=== PATIENT | female | born 1950 | race Caucasian/White ===

== ENCOUNTER 2024-06-01 09:07 | Outpatient (AMB) | payer MEDICARE, OTHER, SELFPAY ==
--- NOTE | 2024-06-01 09:10 | HO.NEPHOV ---
Vital Signs 06/01/24 09:11 Height 5 ft Weight 169 lb BMI 33.0 BP 138/78 Blood Pressure Location Lt brachial Position Sitting Pulse 72 Pulse Source Pulse Oximeter Pulse Oximetry (%) 96 Oxygen Delivery Method Room Air Intake Visit Reasons: Previous patient/ Conf Debt Management Counselor Required: No Accompanied by: Son Allergies fluticasone [From Advair Diskus] Allergy (Unknown, Verified 06/01/24 09:13) Unknown oxycodone Allergy (Unknown, Verified 06/01/24 09:13) Unknown salmeterol [From Advair Diskus] Allergy (Unknown, Verified 06/01/24 09:13) Unknown Medication List - Last Reconciled 06/01/24 by Rambo Liz MD albuterol sulfate 90 mcg/actuation inhalation PRN amlodipine 5 mg PO DAILY pwranhjrslx-ivzidvvht-aahtifzv 200-62.5-25 mcg (Trelegy Ellipta) 1 ea inhalation DAILY hydrochlorothiazide 25 mg PO DAILY lisinopril 10 mg PO BID lorazepam 0.5 mg PO DAILY PRN montelukast 10 mg PO DAILY omeprazole 20 mg PO BID potassium citrate ER 10 mEq PO DAILY HPI Comments Details: Laure is a pleasant 72-year-old man with a history of nephrolithiasis and hypertension. She is here for follow-up regarding the same. She was previously seen more than a year ago. [facility] Medical History (Updated 06/01/24 @ 09:20 by Rambo Liz MD) Hypertension Hyperparathyroidism Asthma Anxiety disorder Review of Systems Const Denies fever(s) and Denies weight loss Card Denies chest pain Resp Denies cough and Denies hemoptysis GI Denies abdominal pain, Denies diarrhea and Denies nausea Musc Denies back pain Neuro Denies focal weakness Physical Exam Vital Signs: Last Vital Signs Pulse 72 06/01/24 09:11 BP 138/78 06/01/24 09:11 Pulse Ox 96 06/01/24 09:11 Oxygen Delivery Method Room Air 06/01/24 09:11 BMI result Body Mass Index 33.0 Awake. Comfortable. Neck is supple. Mucosa moist. Lungs AE equal Heart S1-S2 heard no gallop. Abdomen soft. Extremities no edema. No involuntary movements. No myoclonus. Const General: comfortable; No acute distress Orientation/consciousness: patient oriented x3 Eyes General: appearance normal, both eyes and all related structures Visual Taylor: normal visual taylor by confrontation Neck Neck: Yes supple and Yes no JVD Resp Effort & Inspection: normal respiratory effort and respiratory effort not decreased Auscultation: rhonchi Cardio Palpation: no palpable S3 and no palpable S4 Heart sounds: no rubs GI Inspection: Yes normal to inspection Palpation (GI): Soft to palpation Percussion: Yes normal to percussion Auscultation: normal bowel sounds General: Yes no CVA tenderness Back/Spine/Pelvis Back: no CVA tenderness Skin General skin exam: no petechiae and no purpura Neuro General: patient oriented x3 and no focal motor deficits Extrem General: No clubbing and No edema Results Reviewed Nephrology Results: No Data to Display Assessment & Plan Assessment & Plan (1) Nephrolithiasis: Code(s): N20.0 - Calculus of kidney Category: Medical Plan: Discussed low-salt diet Increase p.o. fluid intake Maintain urine output of 2 L. Continue potassium citrate to increase urinary citrate excretion Plan Hypertension Blood pressure is acceptable. Keep on current medications. Orders: Orders Basic Metabolic Panel 1 Year N20.0 - Calculus of kidney Parathyroid Hormone Intact 1 Year N20.0 - Calculus of kidney UA and rflx microscopic 1 Year N20.0 - Calculus of kidney Coding Level of Care Code Est Pt Level 4 (91221) Diagnoses Nephrolithiasis N20.0
[2024-06-01 09:11] VITALS: BP 138/78; PULSE 72; O2SAT 96; BMI 33.0
== END 2024-06-01 09:27 | disposition home or self-care (01) ==
PROVIDERS: PCP Internal Medicine; Visit Provider Internal Medicine Hypertension Specialist
DX: N20.0 Calculus of kidney (principal)
CPT/HCPCS: 99214

== ENCOUNTER → 2024-06-01 09:07 | Outpatient (BNVA) | payer MEDICARE, OTHER, SELFPAY | PROVIDERS: PCP Internal Medicine; Visit Provider Internal Medicine Hypertension Specialist | DX: N20.0 Calculus of kidney (principal); I10 Essential (primary) hypertension | CPT/HCPCS: 99212 ==

== ENCOUNTER 2025-05-31 09:59 | Outpatient (AMB) | payer MEDICARE, OTHER, SELFPAY ==
[2025-05-31 10:04] VITALS: BP 172/84; PULSE 78; O2SAT 95; BMI 32.2
--- NOTE | 2025-05-31 10:04 | HO.NEPHOV ---
Vital Signs 05/31/25 10:04 Height 5 ft Weight 165 lb BMI 32.2 BP 172/84 H Blood Pressure Location Lt brachial Position Sitting Pulse 78 Pulse Source Pulse Oximeter Pulse Oximetry (%) 95 Oxygen Delivery Method Room Air Intake Visit Reasons: 1yr follow up Spine Surgeon Required: No Accompanied by: Self / Same As Patient Allergies fluticasone (From Advair Diskus) Allergy (Unknown, Verified 05/31/25 10:05) Unknown oxycodone Allergy (Unknown, Verified 05/31/25 10:05) Unknown salmeterol (From Advair Diskus) Allergy (Unknown, Verified 05/31/25 10:05) Unknown Medication List - Last Reconciled 05/31/25 by Rambo Liz MD albuterol sulfate 90 mcg/actuation inhalation PRN amlodipine 5 mg PO DAILY ixbaauglgfa-dxbmqkbhi-yppdfpfx 200-62.5-25 mcg (Trelegy Ellipta) 1 ea inhalation DAILY lisinopril 10 mg PO BID lorazepam 0.5 mg PO DAILY PRN montelukast 10 mg PO DAILY omeprazole 20 mg PO BID potassium citrate ER 10 mEq PO DAILY HPI Comments Details: Laure is a pleasant 72-year-old man with a history of nephrolithiasis and hypertension. She is here for follow-up regarding the same. She was previously seen more than a year ago. 05/31/25 - The patient is a 74-year-old female presenting with hypertension management and review of recent hospitalization for respiratory distress. - Hypertension: Blood pressure fluctuates; hydrochlorothiazide stopped due to hypokalemia. Still on KCL - Kidney Function: Normal kidney function, no current stones. Home BP readings have been acceptable. [facility] Medical History (Updated 05/31/25 @ 10:25 by Rambo Liz MD) Hypertension Hyperparathyroidism Asthma Anxiety disorder Physical Exam Vital Signs: Last Vital Signs Pulse 78 05/31/25 10:04 BP 172/84 H 05/31/25 10:04 Pulse Ox 95 05/31/25 10:04 Oxygen Delivery Method Room Air 05/31/25 10:04 BMI result Body Mass Index 32.2 Comfortable Neck supple no JVD. Lungs entry equal no rales. Heart S1-S2 heard no gallop or rub. Abdomen soft nontender. Neuro alert awake oriented. No asterixis. Extremities no edema. Results Reviewed Results Reviewed: May 2025 Cr 0.84 Assessment & Plan Assessment & Plan (1) Nephrolithiasis: Code(s): N20.0 - Calculus of kidney Category: Medical Plan: Discussed low-salt diet Increase p.o. fluid intake Maintain urine output of 2 L. Continue potassium citrate to increase urinary citrate excretion (2) Hypertension: Code(s): I10 - Essential (primary) hypertension Category: Medical Plan Hypertension Blood pressure is sub optimal Increase Amlodipine to 10 mg QD Monitor BP at home Recheck K in 4 weeks since she is on Potassium citrate And off HCTZ Orders: Orders Basic Metabolic Panel 4 Weeks I10 - Essential (primary) hypertension, N20.0 - Calculus of kidney Medications: Changed From amlodipine 10 mg PO DAILY To amlodipine 10 mg PO DAILY 90 tabs 1RF Coding Level of Care Code Est Pt Level 4 (33194) Diagnoses Nephrolithiasis N20.0 Hypertension I10
--- OUTSIDE RECORDS SUMMARY | 2025-05-31 11:11 | XMS_ITS | Clinical Summary ---
Author Organization [facility] Address [address] [facility] [address] [place] [address] Phone Care Team Providers Care Procurement Clerk Name Role Phone Rocío Bryant MD Primary Care Provider [phone] Allergies Active Allergy Reactions Criticality Noted Date Comments Fluticasone-Salmeterol Other (see comments) Oxycodone 06/19/2021 Medications B Complex Vitamins (B COMPLEX 1 PO) Take 1 tablet by mouth 1 (one) time each day Active albuterol HFA (PROVENTIL HFA;VENTOLIN HFA) 108 (90 Base) MCG/ACT inhaler 06/01/2021 Active Multiple Vitamin (MULTIVITAMIN ADULT PO) Take 1 capsule by mouth 1 (one) time each day Active amLODIPine (NORVASC) 5 MG tablet Take 5 mg by mouth 1 (one) time each day Active lisinopril 10 MG tablet Take 10 mg by mouth 1 (one) time each day Active LORazepam (ATIVAN) 0.5 MG tablet Take 0.5 mg by mouth every 6 (six) hours if needed for anxiety Active montelukast (SINGULAIR) 10 MG tablet Take 10 mg by mouth every night Active sucralfate (CARAFATE) 1 g tablet Take 1 g by mouth 4 (four) times a day Active Cholecalciferol (VITAMIN D-3 PO) Take by mouth Take 50mcg per day PO Active potassium chloride 10 MEQ CR tablet Take 10 mEq by mouth 2 (two) times a day Do not crush, chew, or split. 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 Asthma 04/16/2022 Chronic constipation 04/16/2022 Chronic kidney disease stage 3 04/16/2022 Hypertensive disorder 04/16/2022 Heartburn 04/16/2022 Osteopenia 04/16/2022 Obesity 04/16/2022 Myofascial pain 04/16/2022 Multiple nodules of lung 04/16/2022 Lumbar facet joint pain 04/16/2022 Impaired fasting glycemia 04/16/2022 Hypercalcemia 04/16/2022 Vitamin B6 deficiency 04/16/2022 Scoliosis deformity of spine 04/16/2022 Polyp of colon 04/16/2022 Overview (04/16/2022): tubular adenomas of colon, would need repeat screening colonoscopy in 2021 Triple-negative breast cancer 04/16/2022 Gastroparesis syndrome 05/04/2015 Hyperparathyroidism 07/01/2013 Benign neoplasm of colon 05/27/2006 Immunizations Immunization Administration Dates Next Due Influenza Whole 06/09/2020,07/03/2014,09/14/2012 Influenza, Unspecified 06/16/2020,2017,05/19/2017,08/14/2016 ,06/19/2015,06/09/2013 Pneumococcal Conjugate 13-Valent 06/16/2020,090 11/2014 Pneumococcal Polysaccharide 11/01/2012 Shingrix 06/16/2020 Tdap 11/01/2012 Family History Medical History Relation Comments Cancer Mother lung Hypertension Mother Hypertension Sibling sister Relation Status Comments Father Unknown Mother Sibling Social History Tobacco Use Types Packs/Day Years Used Date Smoking Tobacco: Former Cigarettes Q uit: 08/31/2010 Smokeless Tobacco: Never Tobacco Cessation:Counseling Given: Not Answered Comments:Smoking History Info:Every day Alcohol Use Standard Drinks/Week Comments Yes 0 (1 standard drink = 0.6 oz pure alcohol) Alcoholic Drinks/day: Occasional social drink Comments Unknown Sex and Gender Information Value Date Recorded Sex Assigned at Not on file Legal Sex Female 4:46 PM EST Gender Identity Not on file Sexual Orientation Not on file Last Filed Vital Signs Vital Sign Reading Time Taken Comments Blood Pressure 152/70 05/06/2023 1:17 PM EDT Pulse 74 05/06/2023 1:17 PM EDT Temperature - - Respiratory Rate - - Oxygen Saturation 95% 04/16/2022 3:12 PM EDT Inhaled Oxygen Concentration - - Weight 76.8 kg (169 lb 6.4 oz) 05/06/2023 1:17 P M EDT Height 157.5 cm (5' 2 ) 06/19/2021 4:03 PM EDT Body Mass Index 30.98 06/19/2021 4:03 PM EDT Plan of Treatment Health Maintenance Due Date Last Done Comments Breast Cancer Screening 1950 Colorectal Cancer Screening: Annual FOBT 1998 Colorectal Cancer Screening: Colonoscopy 1998 Colorectal Cancer Screening: Sigmoidoscopy 1998 Pneumococcal Vaccine: 50+ Years (3 of 3 - PCV20 or PCV21) 08/11/2020 06/16/2020, 05/04/2015, 11/01/2012 Influenza Vaccine (#1) 2025 0, 06/09/2020, 06/22/2018, Additional history exists Pneumococcal Vaccine: Peds (0 to 5 Years) and At-Risk Patients (6 to 49 Years) Discontinued 06/16/2020, 05/04/2015, 11/01/2012 Hepatitis B Vaccine Aged Out No longe r eligible based on patient's age to complete this topic Insurance [facility] Medicare Medicaid [place] Medicare [facility] Medicaid [place] Care Teams Procurement Clerk Relationship Specialty Start Date End Date Rocío Bryant MD [address] [place] [address] [address] [place] [address] PCP - General 09/10/20
== END 2025-05-31 10:31 | disposition home or self-care (01) ==
LOC: HO.HKAS 10:00
PROVIDERS: PCP Internal Medicine; Visit Provider Internal Medicine Hypertension Specialist
DX: N20.0 Calculus of kidney (principal); I10 Essential (primary) hypertension
CPT/HCPCS: 99214

== ENCOUNTER → 2025-05-31 09:59 | Outpatient (BNVA) | payer MEDICARE, OTHER, SELFPAY | PROVIDERS: PCP Internal Medicine; Visit Provider Internal Medicine Hypertension Specialist | DX: N20.0 Calculus of kidney (principal); I10 Essential (primary) hypertension | CPT/HCPCS: 99212 ==

== ENCOUNTER 2025-07-06 13:16 | Outpatient (REF) | payer MEDICARE, OTHER, SELFPAY ==
[2025-07-06 17:53] LABS: Anion Gap 13 (12-20); Blood Urea Nitrogen 19 mg/dL (9-16); Calcium 9.4 mg/dL (8.4-10.2); Carbon Dioxide 27 mmol/L (22-29); Chloride 106 mmol/L (96-108); Estimated Glomerular Filt Rate 59; Potassium 3.8 mmol/L (3.3-5.1); Sodium 142 mmol/L (135-145)
== END 2025-07-06 13:17 | disposition home or self-care (01) ==
LOC: HO.HKASLDS 13:16
PROVIDERS: PCP Internal Medicine; Visit Provider Internal Medicine Hypertension Specialist
DX: N20.2 Calculus of kidney with calculus of ureter (principal); I10 Essential (primary) hypertension
CPT/HCPCS: 36415; 80048

== ENCOUNTER 2025-07-19 14:23 | Outpatient (AMB) | payer MEDICARE, OTHER, SELFPAY ==
[2025-07-19 14:28] VITALS: BP 160/72; PULSE 83; O2SAT 96; BMI 32.2
--- NOTE | 2025-07-19 14:28 | HO.NEPHOV ---
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 Required: No Accompanied by: Self / Same As Patient Allergies fluticasone (From Advair Diskus) Allergy (Unknown, Verified 07/19/25 14:29) Unknown oxycodone Allergy (Unknown, Verified 07/19/25 14:29) Unknown salmeterol (From Advair Diskus) Allergy (Unknown, Verified 07/19/25 14:29) Unknown Medication List - Last Reconciled 07/19/25 by Rambo Liz MD albuterol sulfate 90 mcg/actuation inhalation PRN amlodipine 10 mg PO DAILY roiktwpvryw-zyvshcdsg-flypfqeu 200-62.5-25 mcg (Trelegy Ellipta) 1 ea inhalation DAILY hydrochlorothiazide 12.5 mg PO DAILY lisinopril 10 mg PO BID lorazepam 0.5 mg PO DAILY PRN montelukast 10 mg PO DAILY omeprazole 20 mg PO BID potassium citrate ER 10 mEq PO DAILY HPI Comments Details: Laure is a pleasant 72-year-old man with a history of nephrolithiasis and hypertension. She is here for follow-up regarding the same. She was previously seen more than a year ago. 05/31/25 - The patient is a 74-year-old female presenting with hypertension management and review of recent hospitalization for respiratory distress. - Hypertension: Blood pressure fluctuates; hydrochlorothiazide stopped due to hypokalemia. Still on KCL - Kidney Function: Normal kidney function, no current stones. Home BP readings have been acceptable. [facility] Medical History (Updated 05/31/25 @ 10:25 by Rambo Liz MD) Hypertension Hyperparathyroidism Asthma Anxiety disorder Physical Exam Vital Signs: Last Vital Signs Pulse 83 07/19/25 14:28 BP 160/72 H 07/19/25 14:28 Pulse Ox 96 07/19/25 14:28 Oxygen Delivery Method Room Air 07/19/25 14:28 BMI result Body Mass Index 32.2 Comfortable Neck supple no JVD. Lungs entry equal no rales. Heart S1-S2 heard no gallop or rub. Abdomen soft nontender. Neuro alert awake oriented. No asterixis. Extremities no edema. Results Reviewed Nephrology Results: Sodium, (135-145) 142 mmol/L 07/06/25 Potassium, (3.3-5.1) 3.8 mmol/L 07/06/25 Chloride, (96-108) 106 mmol/L 07/06/25 Carbon Dioxide, (22-29) 27 mmol/L 07/06/25 BUN, (9-16) 19 mg/dL H 07/06/25 Creatinine, (0.5-1.4) 0.93 mg/dL 07/06/25 Calcium, (8.4-10.2) 9.4 mg/dL 07/06/25 Assessment & Plan Assessment & Plan (1) Nephrolithiasis: Code(s): N20.0 - Calculus of kidney Category: Medical Plan: Discussed low-salt diet Increase p.o. fluid intake Maintain urine output of 2 L. Continue potassium citrate to increase urinary citrate excretion (2) Hypertension: Code(s): I10 - Essential (primary) hypertension Category: Medical Plan Hypertension HOme BP is excellent Blood pressure is sub optimal in the office due to white coat effect Keep Amlodipine to 10 mg QD Monitor BP at home Orders: Orders Basic Metabolic Panel 1 Year I10 - Essential (primary) hypertension Coding Level of Care Code Est Pt Level 4 (59284) Diagnoses Nephrolithiasis N20.0 Hypertension I10
--- OUTSIDE RECORDS SUMMARY | 2025-07-20 02:53 | XMS_ITS | Clinical Summary ---
Author Organization [facility] Address [address] [facility] [address] [place] [address] Phone Care Team Providers Care Assistant Produce Manager Name Role Phone Rocío Bryant MD Primary Care Provider [phone] Allergies Active Allergy Reactions Criticality Noted Date [...] Influenza, Unspecified 06/16/2020,2017,05/19/2017,08/14/2016 ,06/19/2015,06/09/2013 Pneumococcal Conjugate 13-Valent 06/16/2020,09/0 11/2014 Pneumococcal Polysaccharide 11/01/2012 Shingrix 06/16/2020 Tdap 11/01/2012 Family History Medical History Relation Comments Cancer Mother lung Hypertension Mother Hypertension Sibling sister Relation Status Comments Father Unknown Mother Sibling Social History Tobacco Use Types Packs/Day Years Used Date Smoking Tobacco: Former Cigarettes 1 Q uit: 08/31/2010 Smokeless Tobacco: Never Tobacco [...] Health Maintenance Due Date Last Done Comments Pneumococcal Vaccine: 50+ Years (3 of 3 - PCV20 or PCV21) 08/11/2020 06/16/2020, 05/04/2015, 11/01/2012 Influenza Vaccine (#1) 2025 0, 06/09/2020, 06/22/2018, Additional history exists Pneumococcal Vaccine: Peds (0 to 5 Years) and At-Risk Patients (6 to 49 Years) Discontinued 06/16/2020, 05/04/2015, 11/01/2012 Hepatitis B Vaccine Aged Out No longe r eligible based on patient's age to complete [place] [id number] [facility] LEILA SILVERIO [id number] Medicare Medicaid [place] Medicare [facility] Medicaid [place] Care Teams Assistant Produce Manager Relationship Specialty Start Date End Date Rocío Bryant MD [address] [place] [address], [facility] [address] [place] [address] PCP - General 09/10/20
== END 2025-07-19 14:44 | disposition home or self-care (01) ==
LOC: HO.HKAS 14:24
PROVIDERS: PCP Internal Medicine; Visit Provider Internal Medicine Hypertension Specialist
DX: N20.0 Calculus of kidney (principal); I10 Essential (primary) hypertension
CPT/HCPCS: 99214

== ENCOUNTER → 2025-07-19 14:23 | Outpatient (BNVA) | payer MEDICARE, OTHER, SELFPAY | PROVIDERS: PCP Internal Medicine; Visit Provider Internal Medicine Hypertension Specialist | DX: I10 Essential (primary) hypertension (principal); N20.0 Calculus of kidney | CPT/HCPCS: 99212 ==